=== PATIENT | male | born 1935 | race Caucasian/White ===

== ENCOUNTER 2019-08-30 02:15 | Emergency (ER) | payer MEDICARE ==
[~2019-08-30] VITALS: Ht 170.2 cm; Wt 59.1 kg
--- NOTE | 2019-08-30 02:36 | NUR ---
Pt. transported to CT scan by tech at this time.
--- NOTE | 2019-08-30 02:42 | NUR ---
Pt. returns to ED room 13 at this time.
--- NOTE | 2019-08-30 03:07 | NUR ---
dr georges at bedside to evaluate wound to right forearm. area cleaned and dressed.
--- NOTE | 2019-08-30 03:39 | NUR ---
Pt. has no contact center rep on file. Attempting to contact [employer] to gather information regarding pt's next of kin. Pt. does not have contact information of his daughter with him. Daughter's name: Gillian Lewis.
--- NOTE | 2019-08-30 04:57 | NUR ---
Contact information obtained for Gillian Lewis. Voice message left at this time.
--- NOTE | 2019-08-30 05:50 | NUR ---
Spoke with Dr. Ni re pt's transportation status. animal services officer to be consulted for resources and to assist with this process.
--- NOTE | 2019-08-30 06:40 | NUR ---
PT'S DAUGHTER CALLS BACK AND WILL COME TO PICK HIM UP. ALSO REQUESTING TO HAVE [facility] TO HAVE THEM DRAWN AT [facility]. DAUGHTER WILL TALK TO THE DOCTOR WHEN SHE ARRIVES.
--- NOTE | 2019-08-30 06:43 | NUR ---
Discussed pt's daughter's request w/ [facility] that labs be drawn prior to discharge if possible as he is scheduled for the same tomorrow through [facility]. New order for labs received.
[2019-08-30 07:15] LABS: BASOPHILS # (AUTO) 0.1 X10'3 (0-0.2); BASOPHILS % (AUTO) 1.1 % (0-1); EOSINOPHILS # (AUTO) 0.1 X10'3 (0-0.9); EOSINOPHILS % (AUTO) 1.7 % (0-6); HEMATOCRIT 33.2 % (42.0-52.0); HEMOGLOBIN 11.3 g/dl (14.0-17.9); LYMPHOCYTES # (AUTO) 0.8 X10'3 (1.1-4.8); LYMPHOCYTES % (AUTO) 15.6 % (21-51); MEAN CORPUSCULAR HEMOGLOBIN 30.7 PG (27.0-31.0); MEAN CORPUSCULAR VOLUME 90.2 FL (78-98); MEAN PLATELET VOLUME 8.2 FL (7.4-10.4); MONOCYTES # (AUTO) 0.5 X10'3 (0-0.9); NEUTROPHILS # (AUTO) 3.8 X10'3 (1.8-7.7); NEUTROPHILS % (AUTO) 71.6 % (42-75); PLATELET COUNT 196 X10'3 (140-440); RED BLOOD COUNT 3.68 X10'6 (4.70-6.10); RED CELL DISTRIBUTION WIDTH 14.4 % (11.5-14.5); WHITE BLOOD COUNT 5.3 X10'3 (4.5-11.0)
--- NOTE | 2019-08-30 07:22 | NUR ---
Dr Ni engaged with daughter and son-in-law including current medication review. Pt resting quietly.
[2019-08-30 07:24] LABS: ALANINE AMINOTRANSFERASE 17 U/L (12-78); ALBUMIN 3.2 G/DL (3.4-5.0); ALBUMIN/GLOBULIN RATIO 1.1 (1.1-1.5); ALKALINE PHOSPHATASE 57 IU/L (46-116); ANION GAP 6 (8-16); ASPARTATE AMINO TRANSFERASE 13 U/L (10-37); BILIRUBIN,TOTAL 0.5 MG/DL (0.1-1.0); BLOOD UREA NITROGEN 29 MG/DL (7-18); BUN/CREATININE RATIO 30.2 (5.4-32.0); CALCIUM 8.1 MG/DL (8.5-10.1); CHLORIDE 109 MMOL/L (99-107); CREATININE 0.96 MG/DL (0.60-1.10); GLUCOSE 92 MG/DL (70-104); POTASSIUM 3.9 MMOL/L (3.5-5.1); SODIUM 144 MMOL/L (135-145); TOTAL CARBON DIOXIDE 28.9 MMOL/L (24-32); TOTAL PROTEIN 6.1 G/DL (6.4-8.2); eGFR 75 ML/MIN
[2019-08-30 08:00] LABS: CLARITY,URINE CLEAR (Clear); COLOR,URINE YELLOW (Yellow); GLUCOSE, URINE NEGATIVE (Neg); KETONES,URINE NEGATIVE (Neg); LEUKOCYTE ESTERASE ,URINE NEGATIVE (Neg); NITRITES, URINE NEGATIVE (Neg); OCCULT BLOOD,URINE NEGATIVE (Neg); PH,URINE 7.5 (4.8-8.0); PROTEIN,URINE NEGATIVE (Neg); UROBILINOGEN,URINE 0.2 E.U/dL (0.2-1.0)
[2019-08-30 08:01] LABS: UA COLLECTION TYPE VOIDED
[2019-08-30 08:37] VITALS: BP 124/69
== END 2019-08-30 08:39 | disposition home or self-care (01) ==
LOC: ER 02:16
DX: S51.811A Laceration without foreign body of right forearm, initial encounter (principal); S09.90XA Unspecified injury of head, initial encounter; J44.9 Chronic obstructive pulmonary disease, unspecified; Z87.891 Personal history of nicotine dependence; Z60.2 Problems related to living alone; Z88.6 Allergy status to analgesic agent; W18.39XA Other fall on same level, initial encounter; Y93.89 Activity, other specified; Y92.89 Other specified places as the place of occurrence of the external cause; Y99.8 Other external cause status
CPT/HCPCS: 36415; 70450; 80053; 81003; 84484; 85025; 99284